=== PATIENT | male | born 1990 | race Caucasian/White ===

== ENCOUNTER 2018-01-10 10:23 | Emergency (ER) | payer SELFPAY ==
[~2018-01-10] VITALS: Ht 182.9 cm; Wt 98.0 kg
[2018-01-10 10:24] VITALS: Ht 182.9 cm; Wt 98.0 kg
[2018-01-10 11:10] VITALS: BP 145/79
== END 2018-01-10 11:10 | disposition home or self-care (01) ==
LOC: ED 10:23
DX: J02.9 Acute pharyngitis, unspecified (principal); H66.93 Otitis media, unspecified, bilateral